=== PATIENT | male | born 1980 | race Caucasian/White ===

== ENCOUNTER 2017-05-25 08:05 | Emergency (ER) | payer SELFPAY ==
[~2017-05-25] VITALS: Ht 170.2 cm; Wt 70.0 kg
[2017-05-25 08:12] VITALS: BP 157/94
== END 2017-05-25 08:47 | disposition left against medical advice (07) ==
LOC: EME 08:05 → EDBD 08:05 → EME 08:47
DX: H92.02 Otalgia, left ear (principal); Z53.21 Procedure and treatment not carried out due to patient leaving prior to being seen by health care provider

== ENCOUNTER 2017-12-16 14:38 | Emergency (ER) | payer OTHER ==
[~2017-12-16] VITALS: Ht 170.2 cm; Wt 70.0 kg
[2017-12-16 15:29] LABS: D-DIMER ELISA < 150.00 ng/mLDDU (<230)
[2017-12-16 15:31] LABS: CHLORIDE 105 mEq/L (99-109); POTASSIUM 3.8 mEq/L (3.7-5.4); SODIUM 140 mEq/L (136-147)
[2017-12-16 15:32] LABS: GLUCOSE 78 mg/dL (70-99)
[2017-12-16 15:36] LABS: CREATININE 1.2 mg/dL (0.6-1.3); GFR ESTIMATE (CALCULATED) > 59 mL/min/ (58.99-99999)
[2017-12-16 15:37] LABS: UREA NITROGEN (BUN) 15 mg/dL (9-23)
[2017-12-16 15:41] LABS: HEMATOCRIT 29.6 % (38.0-50.0); HEMOGLOBIN 10.1 G/DL (12.5-16.6); MCH 29.7 PG (29.0-34.0); MCHC 34.1 G/DL (30.0-36.0); MCV 87.1 FL (86-99); RBC DIS.WIDTH-CV 12.1 % (11.8-14.6); RBC DIS.WIDTH-SD 38.6 % (39-53); WHITE BLOOD COUNT 8.5 K/uL (4.1-10.2)
[2017-12-16 16:18] LABS: PLAT.SUFFICIENCY ADEQUATE; PLATELET COUNT 365 K/uL (156-360)
[2017-12-16 17:22] VITALS: BP 121/77
== END 2017-12-16 17:23 | disposition home or self-care (01) ==
LOC: EME 14:38
PROVIDERS: Physician Assistant
DX: M79.662 Pain in left lower leg (principal); M79.661 Pain in right lower leg; D64.9 Anemia, unspecified; E10.40 Type 1 diabetes mellitus with diabetic neuropathy, unspecified; E10.319 Type 1 diabetes mellitus with unspecified diabetic retinopathy without macular edema; Z79.4 Long term (current) use of insulin; I10 Essential (primary) hypertension; E78.5 Hyperlipidemia, unspecified; Z88.0 Allergy status to penicillin
CPT/HCPCS: 80048; 85027; 85379; 93970; 99281; 99284